=== PATIENT | female | born 2000 | race Caucasian/White ===

== ENCOUNTER → 2023-11-25 07:20 | Outpatient (REF) | payer OTHER, SELFPAY | LOC: DHCBS HW 07:20 | PROVIDERS: ATTENDING PHYSICIAN Internal Medicine Interventional Cardiology; FAMILY PHYSICIAN Nurse Practitioner | DX: I37.0 Nonrheumatic pulmonary valve stenosis (principal) | CPT/HCPCS: 93306 ==

== ENCOUNTER → 2024-11-11 15:47 | Outpatient (REF) | payer OTHER, SELFPAY | LOC: HWRCS 15:47 | PROVIDERS: ATTENDING PHYSICIAN Internal Medicine Interventional Cardiology; FAMILY PHYSICIAN Internal Medicine | DX: G54.0 Brachial plexus disorders (principal); I37.0 Nonrheumatic pulmonary valve stenosis | CPT/HCPCS: 93306 ==